=== PATIENT | male | born 1970 | race Caucasian/White ===

== ENCOUNTER 2018-10-10 08:34 | Inpatient (IN) | payer OTHER ==
[2018-10-10 09:15] VITALS: BMI 28.7
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
[2018-10-10] MEDS ORDERED: ACETAMINOPHEN 325 MG TABLET (FP) PO PRN ×2 (09:59)
[2018-10-10] MEDS ORDERED: cloNIDine HCL 0.1 MG TABLET PO PRN (09:59)
[2018-10-10] MEDS ORDERED: MAGNESIUM HYDROX 2400MG/30ML ORAL SUSPENSION 30 ML CUP PO PRN (09:59)
[2018-10-10] MEDS ORDERED: MAG HYDROX/AL HYDROX/SIMETH 30 ML UNIT-DOSE CUP PO PRN (09:59)
[2018-10-10] MEDS ORDERED: MAGNESIUM CITRATE 300 ML BOTTLE PO PRN (09:59)
[2018-10-10] MEDS ORDERED: MELATONIN 5 MG TABLETS PO PRN (09:59)
[2018-10-10] MEDS ORDERED: IBUPROFEN 400 MG TABLET (FP) PO PRN (09:59)
[2018-10-10] MEDS ORDERED: BISMUTH SUBSALICYLATE 524 MG/30 ML UD PO PRN (09:59)
[2018-10-10] MEDS ORDERED: MENTHOL/PHENOL 1 EACH UD MM PRN (09:59)
[2018-10-10] MEDS ORDERED: METHADONE (DETOX) 10 MG, METHADONE (DETOX) 5 MG PO ONE (10:03)
[2018-10-10] MEDS ORDERED: METHADONE HCL 5 MG TABLET (FOR DETOX USE ONLY) ONE (11:06)
[2018-10-10] MEDS ORDERED: METHADONE HCL 10 MG TABLET (FOR DETOX USE ONLY) ONE (11:06)
[2018-10-10] MEDS: PRENATAL VITAMINS W/ FOLIC ACID TABLET (FP) PO SCH (11:07)
[2018-10-10] MEDS: METHOCARBAMOL 500 MG TABLET PO PRN ×2 (11:08→22:45)
[2018-10-10] MEDS ORDERED: hydrOXYzine PAMOATE 25 MG CAPSULE (FP) PO ONE (11:14)
[2018-10-10 12:55] LABS: PH,URINE >= 9.0 (5.0-8.0); URINE APPEARANCE CLEAR; URINE BILIRUBIN NEGATIVE (NEGATIVE); URINE COLOR YELLOW; URINE GLUCOSE (UA) NEGATIVE (NEGATIVE); URINE KETONE NEGATIVE (NEGATIVE); URINE LEUK ESTERASE NEGATIVE (NEGATIVE); URINE NITRITE NEGATIVE (NEGATIVE); URINE PROTEIN NEGATIVE (NEGATIVE); URINE UROBILINOGEN 0.2 mg/dL (0.2-1.0)
[2018-10-10] MEDS ORDERED: QUEtiapine FUMARATE 50 MG TABLET PO ONE (22:00)
[2018-10-10] MEDS: THIAMINE HCL 100 MG TABLET (FP) PO SCH (22:44)
[2018-10-10] MEDS ORDERED: METHADONE HCL 10 MG TABLET (FOR DETOX USE ONLY) PO ONE (23:00)
--- NOTE | 2018-10-11 09:53 | PN ---
BHS COWS - Scale Resting Pulse: 0= [place] 80 or Below Sweatin= Chills/Flushing Restless Observation: 0= Sits Still Pupil Size: 1= Pupils >than Normal Bone or Joint Aches: 1= Mild Discomfort Runny Nose/ Eye Tearin= Nasal Congestion GI Upset > 30mins: 1= Stomach Cramp Tremor Observation of Outstretched Hands: 2= Slight Tremor Visible Yawning Observation: 1= 1-2x During Session Anxiety or Irritability: 2=Irritable/Anxious Goose Flesh Skin: 0=Smooth Skin COWS Score: 10 BHS Progress Note (SOAP) Subjective: tired low energy resting on bed tolerate fluid well Objective: 10/11/18 09:55 Laboratory Last Values Urine Color Yellow 10/10/18 10:02 Urine Appearance Clear 10/10/18 10:02 Urine pH >= 9.0 (5.0-8.0) H 10/10/18 10:02 Ur Specific [place] 1.017 (1.010-1.035) 10/10/18 10:02 Urine Protein Negative (NEGATIVE) 10/10/18 10:02 Urine Glucose (UA) Negative (NEGATIVE) 10/10/18 10:02 Urine Ketones Negative (NEGATIVE) 10/10/18 10:02 Urine Blood Negative (NEGATIVE) 10/10/18 10:02 Urine Nitrite Negative (NEGATIVE) 10/10/18 10:02 Urine Bilirubin Negative (NEGATIVE) 10/10/18 10:02 Urine Urobilinogen 0.2 mg/dL (0.2-1.0) 10/10/18 10:02 Ur Leukocyte Esterase Negative (NEGATIVE) 10/10/18 10:02 10/11/18 09:58 lab pending Assessment: 10/11/18 09:58 opiate withdrawal sx Plan: continue detox
[2018-10-11] MEDS ORDERED: METHADONE (DETOX) 20 MG, METHADONE (DETOX) 5 MG PO ONE (10:00)
[2018-10-11] MEDS ORDERED: METHADONE HCL 10 MG TABLET (FOR DETOX USE ONLY) PO ONE (10:00)
[2018-10-11 10:01] LABS: ALBUMIN 2.8 g/dl (3.4-5.0); BILIRUBIN,TOTAL 0.9 mg/dL (0.2-1); CALCIUM 8.4 mg/dL (8.5-10.1); CREATININE 0.5 mg/dL (0.55-1.3); POTASSIUM 3.8 mmol/L (3.5-5.1); TOT PROT 6.5 g/dl (6.4-8.2)
[2018-10-11 10:11] LABS: HEMATOCRIT 35.7 % (35.4-49); HEMOGLOBIN 11.9 GM/dL (11.7-16.9); MCH 28.6 pg (25.7-33.7); MCHC 33.4 g/dl (32.0-35.9); MEAN CELL VOLUME 85.8 fl (80-96); MEAN PLT VOLUME 7.1 fl (7.5-11.1); PLATELET COUNT 260 K/MM3 (134-434); RBC 4.17 M/mm3 (4.00-5.60); RDW 14.4 % (11.9-15.9); WHITE BLOOD COUNT 9.6 K/mm3 (4.0-10.0)
[2018-10-11] MEDS ORDERED: METHADONE HCL 10 MG TABLET (FOR DETOX USE ONLY) ONE (10:31)
[2018-10-11] MEDS ORDERED: METHADONE HCL 5 MG TABLET (FOR DETOX USE ONLY) ONE (10:31)
[2018-10-11] MEDS: PRENATAL VITAMINS W/ FOLIC ACID TABLET (FP) PO SCH (10:43)
[2018-10-11] MEDS: THIAMINE HCL 100 MG TABLET (FP) PO SCH (22:32)
[2018-10-12 09:17] VITALS: BP 125/87; PULSE 65; TEMP 97.9
[2018-10-12] MEDS ORDERED: METHADONE HCL 10 MG TABLET (FOR DETOX USE ONLY) PO ONE (10:00)
[2018-10-12] MEDS: PRENATAL VITAMINS W/ FOLIC ACID TABLET (FP) PO SCH (10:25)
--- NOTE | 2018-10-12 12:05 | DS ---
[facility] Detox Discharge Summary Admission Date: 10/10/18 Discharge Date: 10/12/18 - History Present History: Opioid Dependence Additional Comments: 48 years old male admitted on 10/10/18 for opiate withdrawal stabilization feeling better today wants to return to his outpatient program and seeks methadone or suboxone program "they want me to come to detox" "I give them dirty urine" "I want to go back bring the discharge paper with me" patient is alert no acute distress denies suicidal ideation Pertinent Past History: bring in medication list and lab report to follow up appointment - Physical Exam Results Vital Signs: Vital Signs Temperature 97.9 F 10/12/18 09:16 Pulse Rate 65 10/12/18 09:16 Respiratory Rate 18 10/12/18 09:16 Blood Pressure 125/87 10/12/18 09:16 O2 Sat by Pulse Oximetry (%) Pertinent Admission Physical Exam Findings: opiate withdrawal sx Laboratory Last Values WBC 9.6 K/mm3 (4.0-10.0) 10/11/18 07:00 RBC 4.17 M/mm3 (4.00-5.60) 10/11/18 07:00 Hgb 11.9 GM/dL (11.7-16.9) 10/11/18 07:00 Hct 35.7 % (35.4-49) 10/11/18 07:00 MCV 85.8 fl (80-96) 10/11/18 07:00 MCH 28.6 pg (25.7-33.7) 10/11/18 07:00 MCHC 33.4 g/dl (32.0-35.9) 10/11/18 07:00 RDW 14.4 % (11.9-15.9) 10/11/18 07:00 Plt Count 260 K/MM3 (134-434) 10/11/18 07:00 MPV 7.1 fl (7.5-11.1) L 10/11/18 07:00 Sodium 141 mmol/L (136-145) 10/11/18 07:00 Potassium 3.8 mmol/L (3.5-5.1) 10/11/18 07:00 Chloride 106 mmol/L (98-107) 10/11/18 07:00 Carbon Dioxide 27 mmol/L (21-32) 10/11/18 07:00 Anion Gap 8 MMOL/L (8-16) 10/11/18 07:00 BUN 7 mg/dL (7-18) 10/11/18 07:00 Creatinine 0.5 mg/dL (0.55-1.3) L 10/11/18 07:00 Est GFR (CKD-EPI)AfAm 150.62 10/11/18 07:00 Est GFR (CKD-EPI)NonAf 129.96 10/11/18 07:00 Random Glucose 85 mg/dL (74-106) 10/11/18 07:00 Calcium 8.4 mg/dL (8.5-10.1) L 10/11/18 07:00 Total Bilirubin 0.9 mg/dL (0.2-1) 10/11/18 07:00 AST 42 U/L (15-37) H 10/11/18 07:00 ALT 110 U/L (13-61) H 10/11/18 07:00 Alkaline Phosphatase 222 U/L (45-117) H 10/11/18 07:00 Total Protein 6.5 g/dl (6.4-8.2) 10/11/18 07:00 Albumin 2.8 g/dl (3.4-5.0) L 10/11/18 07:00 Urine Color Yellow 10/10/18 10:02 Urine Appearance Clear 10/10/18 10:02 Urine pH >= 9.0 (5.0-8.0) H 10/10/18 10:02 Ur Specific [place] 1.017 (1.010-1.035) 10/10/18 10:02 Urine Protein Negative (NEGATIVE) 10/10/18 10:02 Urine Glucose (UA) Negative (NEGATIVE) 10/10/18 10:02 Urine Ketones Negative (NEGATIVE) 10/10/18 10:02 Urine Blood Negative (NEGATIVE) 10/10/18 10:02 Urine Nitrite Negative (NEGATIVE) 10/10/18 10:02 Urine Bilirubin Negative (NEGATIVE) 10/10/18 10:02 Urine Urobilinogen 0.2 mg/dL (0.2-1.0) 10/10/18 10:02 Ur Leukocyte Esterase Negative (NEGATIVE) 10/10/18 10:02 RPR Titer Nonreactive (NONREACTIVE) 10/11/18 07:00 lab noted - Treatment Hospital Course: Detox Protocol Followed, Detoxed Safely, Responded well, Discharged Condition Good, Rehab Referral Accepted Patient has Accepted a Rehab Referral to: return to his out patient rehab facility - Medication Discharge Medications: Ambulatory Orders NK [No Known Home Medication] 10/10/18 - Diagnosis (1) Opioid dependence with withdrawal Current Visit: Yes Status: Acute (2) Essential (primary) hypertension Current Visit: Yes Status: Chronic (3) History of positive PPD Current Visit: Yes Status: Resolved - AMA Did Patient Leave Against Medical Advice: No BHS COWS - Scale Resting Pulse: 0= [place] 80 or Below Sweatin= Chills/Flushing Restless Observation: 0= Sits Still Pupil Size: 0= Normal to Room Light Bone or Joint Aches: 1= Mild Discomfort Runny Nose/ Eye Tearin= Nasal Congestion GI Upset > 30mins: 1= Stomach Cramp Tremor Observation of Outstretched Hands: 1= Tremor [place], Not Seen Yawning Observation: 0= None Anxiety or Irritability: 1=Feels Anxious/Irritable Goose Flesh Skin: 0=Smooth Skin COWS Score: 6
--- NOTE | 2018-10-12 12:13 | EKG ---
Test Reason : Blood Pressure : / mmHG Vent. Rate : 067 BPM Atrial Rate : 067 BPM P-R Int : 150 ms QRS Dur : 090 ms QT Int : 428 ms P-R-T Axes : 044 001 016 degrees QTc Int : 452 ms NORMAL SINUS RHYTHM WITH SINUS ARRHYTHMIA NORMAL ECG NO PREVIOUS ECGS AVAILABLE Confirmed by MD Rigo, Joce ([id number]) on 10/12/2018 12:12:48 PM Referred By: DARIAN MCCULLOUGH Confirmed By:Joce Sierra MD
[2018-10-13] MEDS ORDERED: METHADONE HCL 10 MG TABLET (FOR DETOX USE ONLY) PO ONE (10:00)
[2018-10-14] MEDS ORDERED: METHADONE HCL 5 MG TABLET (FOR DETOX USE ONLY) PO ONE (06:00)
[2018-10-15] MEDS ORDERED: METHADONE HCL 10 MG TABLET (FOR DETOX USE ONLY) PO ONE (06:00)
== END 2018-10-12 12:45 | disposition home or self-care (01) | DRG 773 ==
LOC: YASAS 08:34 → Y3N 10:06
PROVIDERS: ADMIT Surgery; ATTEND Surgery
PROC: HZ2ZZZZ Detoxification Services for Substance Abuse Treatment (ICD-10-PCS; principal; 2018-10-08)
DX: F11.23 Opioid dependence with withdrawal (principal); I10 Essential (primary) hypertension; R76.11 Nonspecific reaction to tuberculin skin test without active tuberculosis; Z91.14 Patient's other noncompliance with medication regimen; Z59.0 Homelessness
CPT/HCPCS: 36415; 71046-TC-FY; 80053; 81003; 85027; 86593; 93005; 93010; J0735

== ENCOUNTER 2019-03-02 12:56 | Inpatient (IN) | payer OTHER ==
[2019-03-02 14:07] VITALS: BMI 28.5
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
[2019-03-02] MEDS ORDERED: MAGNESIUM CITRATE 300 ML BOTTLE PO PRN (14:54)
[2019-03-02] MEDS ORDERED: MAGNESIUM HYDROX 2400MG/30ML ORAL SUSPENSION 30 ML CUP PO PRN (14:54)
[2019-03-02] MEDS ORDERED: METHOCARBAMOL 500 MG TABLET PO PRN (14:54)
[2019-03-02] MEDS ORDERED: cloNIDine HCL 0.1 MG TABLET PO PRN (14:54)
[2019-03-02] MEDS ORDERED: METHADONE HCL 10 MG TABLET (FOR DETOX USE ONLY) PO ONE (14:54)
[2019-03-02] MEDS ORDERED: MAG HYDROX/AL HYDROX/SIMETH 30 ML UNIT-DOSE CUP PO PRN (14:54)
[2019-03-02] MEDS ORDERED: MENTHOL/PHENOL 1 EACH UD MM PRN (14:54)
[2019-03-02] MEDS ORDERED: IBUPROFEN 400 MG TABLET (FP) PO PRN (14:54)
[2019-03-02] MEDS ORDERED: NALOXONE HCL 0.4 MG/ML VIAL IM PRN (14:54)
[2019-03-02] MEDS ORDERED: ACETAMINOPHEN 325 MG TABLET (FP) PO PRN ×2 (14:54)
[2019-03-02] MEDS ORDERED: BISMUTH SUBSALICYLATE 524 MG/30 ML UD PO PRN (14:54)
[2019-03-02] MEDS ORDERED: hydrOXYzine PAMOATE 25 MG CAPSULE (FP) PO PRN (14:54)
[2019-03-02] MEDS ORDERED: MAGNESIUM CITRATE 300 ML BOTTLE PO ONE (14:56)
[2019-03-02] MEDS ORDERED: P-EPHED 60MG/TRIPROLIDI 2.5MG TABLET PO PRN (18:47)
[2019-03-02] MEDS: ATORVASTATIN CA 10 MG TABLET (FP) PO SCH (22:09)
[2019-03-02] MEDS: MELATONIN 5 MG TABLETS PO PRN (22:09)
[2019-03-02] MEDS: DOCUSATE SODIUM 100 MG CAPSULE (FP) PO SCH (22:09)
[2019-03-02] MEDS: THIAMINE HCL 100 MG TABLET (FP) PO SCH (22:09)
[2019-03-03] MEDS ORDERED: METHADONE HCL 10 MG TABLET (FOR DETOX USE ONLY) ONE (08:59)
[2019-03-03] MEDS ORDERED: METHADONE HCL 5 MG TABLET (FOR DETOX USE ONLY) ONE (09:00)
[2019-03-03] MEDS ORDERED: METHADONE (DETOX) 20 MG, METHADONE (DETOX) 5 MG PO ONE (10:00)
[2019-03-03] MEDS ORDERED: THIAMINE HCL PO SCH (10:00)
[2019-03-03] MEDS: HYDROCHLOROTHIAZIDE 25 MG TABLET (FP) PO SCH (10:03)
[2019-03-03] MEDS: amLODIPine BESYLATE 5 MG TABLET (FP) PO SCH (10:03)
[2019-03-03] MEDS: PRENATAL VITAMINS W/ FOLIC ACID TABLET (FP) PO SCH (10:03)
[2019-03-03] MEDS: DOCUSATE SODIUM 100 MG CAPSULE (FP) PO SCH ×2 (10:03→22:18)
[2019-03-03 10:21] LABS: HEMATOCRIT 35.9 % (35.4-49); HEMOGLOBIN 12.4 GM/dL (11.7-16.9); MCH 29.4 pg (25.7-33.7); MCHC 34.4 g/dl (32.0-35.9); MEAN CELL VOLUME 85.3 fl (80-96); MEAN PLT VOLUME 7.7 fl (7.5-11.1); PLATELET COUNT 228 K/MM3 (134-434); RBC 4.21 M/mm3 (4.00-5.60); RDW 13.2 % (11.9-15.9)
[2019-03-03 10:32] LABS: BILIRUBIN,TOTAL 0.4 mg/dL (0.2-1); BLOOD UREA NITROGEN 12.5 mg/dL (7-18); CALCIUM 8.5 mg/dL (8.5-10.1); CREATININE 0.7 mg/dL (0.55-1.3); POTASSIUM 3.7 mmol/L (3.5-5.1); TOT PROT 7.3 g/dl (6.4-8.2)
[2019-03-03] MEDS ORDERED: FLU VACCINE QUAD 60 MCG/0.5 ML (MDV 19-20) IM ONE (12:00)
[2019-03-03] MEDS ORDERED: PNEUMOCOCCAL 23 VACCINE 0.5 ML VIAL IM ONE (12:00)
[2019-03-03] MEDS ORDERED: PNEUMOC 13-VAL CONJ-DIP CRM/PF 0.5 ML DISP.SYRIN IM ONE (12:00)
[2019-03-03] MEDS: clonazePAM 0.5 MG TABLET PO PRN (12:54)
--- NOTE | 2019-03-03 17:10 | PN ---
BHS COWS - Scale Resting Pulse: 0= [place] 80 or Below Sweatin= Chills/Flushing Restless Observation: 1= Difficult to Sit Still Pupil Size: 0= Normal to Room Light Bone or Joint Aches: 0= None Runny Nose/ Eye Tearin= Nasal Congestion GI Upset > 30mins: 1= Stomach Cramp Tremor Observation of Outstretched Hands: 0= None Yawning Observation: 1= 1-2x During Session Anxiety or Irritability: 2=Irritable/Anxious Goose Flesh Skin: 3=Piloerection COWS Score: 10 BHS Progress Note (SOAP) Subjective: Anxious, Sweating, Stomach Cramping, Nasal Congestion. Objective: PATIENT A & O X 3. IN NO ACUTE DISTRESS. 03/03/19 17:09 Vital Signs Temperature 98.7 F 03/03/19 14:16 Pulse Rate 51 L 03/03/19 14:16 Respiratory Rate 18 03/03/19 14:16 Blood Pressure 120/83 03/03/19 14:16 O2 Sat by Pulse Oximetry (%) Laboratory Tests 03/03/19 03/03/19 03/03/19 06:15 06:15 06:15 WBC 7.0 RBC 4.21 Hgb 12.4 Hct 35.9 MCV 85.3 MCH 29.4 MCHC 34.4 RDW 13.2 Plt Count 228 MPV 7.7 Sodium 140 Potassium 3.7 Chloride 105 Carbon Dioxide 27 Anion Gap 7 L BUN 12.5 Creatinine 0.7 Est GFR (CKD-EPI)AfAm 130.25 Est GFR (CKD-EPI)NonAf 112.38 Random Glucose 115 H Calcium 8.5 Total Bilirubin 0.4 AST 16 ALT 18 Alkaline Phosphatase 109 Total Protein 7.3 Albumin 4.0 RPR Titer HIV 1&2 Antibody Screen Negative HIV P24 Antigen Negative 03/03/19 06:15 WBC RBC Hgb Hct MCV MCH MCHC RDW Plt Count MPV Sodium Potassium Chloride Carbon Dioxide Anion Gap BUN Creatinine Est GFR (CKD-EPI)AfAm Est GFR (CKD-EPI)NonAf Random Glucose Calcium Total Bilirubin AST ALT Alkaline Phosphatase Total Protein Albumin RPR Titer Nonreactive HIV 1&2 Antibody Screen HIV P24 Antigen LABS NOTED. Assessment: 03/03/19 17:09 WITHDRAWAL SYMPTOMS. Plan: CONTINUE DETOX.
[2019-03-03] MEDS: ATORVASTATIN CA 10 MG TABLET (FP) PO SCH (22:18)
[2019-03-03] MEDS: MELATONIN 5 MG TABLETS PO PRN (22:18)
[2019-03-03] MEDS: THIAMINE HCL 100 MG TABLET (FP) PO SCH (22:18)
[2019-03-04] MEDS: clonazePAM 0.5 MG TABLET PO PRN ×2 (09:44→17:42)
[2019-03-04] MEDS: PRENATAL VITAMINS W/ FOLIC ACID TABLET (FP) PO SCH (09:44)
[2019-03-04] MEDS: amLODIPine BESYLATE 5 MG TABLET (FP) PO SCH (09:44)
[2019-03-04] MEDS: DOCUSATE SODIUM 100 MG CAPSULE (FP) PO SCH ×2 (09:45→22:25)
[2019-03-04] MEDS: HYDROCHLOROTHIAZIDE 25 MG TABLET (FP) PO SCH (09:45)
[2019-03-04] MEDS ORDERED: TRIMETHOBENZAMIDE HCL 300 MG CAPSULE PO PRN (09:50)
[2019-03-04] MEDS ORDERED: METHADONE HCL 10 MG TABLET (FOR DETOX USE ONLY) PO ONE (10:00)
[2019-03-04] MEDS: RANITIDINE HCL 150 MG TABLET (FP) PO SCH (14:51)
--- NOTE | 2019-03-04 17:09 | PN ---
BHS COWS - Scale Resting Pulse: 0= [place] 80 or Below Sweatin= No chills or Flushing Restless Observation: 0= Sits Still Pupil Size: 0= Normal to Room Light Bone or Joint Aches: 1= Mild Discomfort Runny Nose/ Eye Tearin= None GI Upset > 30mins: 2= Nausea/Diarrhea Tremor Observation of Outstretched Hands: 0= None Yawning Observation: 1= 1-2x During Session Anxiety or Irritability: 2=Irritable/Anxious Goose Flesh Skin: 3=Piloerection COWS Score: 9 BHS Progress Note (SOAP) Subjective: Heartburn Anxious, Fatigue, Nausea. Objective: PATIENT A & O X 3. IN NO ACUTE DISTRESS. 03/04/19 17:08 Vital Signs Temperature 98.5 F 03/04/19 13:37 Pulse Rate 56 L 03/04/19 13:37 Respiratory Rate 16 03/04/19 13:37 Blood Pressure 114/80 03/04/19 13:37 O2 Sat by Pulse Oximetry (%) Laboratory Tests 03/03/19 03/03/19 03/03/19 06:15 06:15 06:15 WBC 7.0 RBC 4.21 Hgb 12.4 Hct 35.9 MCV 85.3 MCH 29.4 MCHC 34.4 RDW 13.2 Plt Count 228 MPV 7.7 Sodium 140 Potassium 3.7 Chloride 105 Carbon Dioxide 27 Anion Gap 7 L BUN 12.5 Creatinine 0.7 Est GFR (CKD-EPI)AfAm 130.25 Est GFR (CKD-EPI)NonAf 112.38 Random Glucose 115 H Calcium 8.5 Total Bilirubin 0.4 AST 16 ALT 18 Alkaline Phosphatase 109 Total Protein 7.3 Albumin 4.0 RPR Titer HIV 1&2 Antibody Screen Negative HIV P24 Antigen Negative 03/03/19 06:15 WBC RBC Hgb Hct MCV MCH MCHC RDW Plt Count MPV Sodium Potassium Chloride Carbon Dioxide Anion Gap BUN Creatinine Est GFR (CKD-EPI)AfAm Est GFR (CKD-EPI)NonAf Random Glucose Calcium Total Bilirubin AST ALT Alkaline Phosphatase Total Protein Albumin RPR Titer Nonreactive HIV 1&2 Antibody Screen HIV P24 Antigen LABS NOTED. Assessment: 03/04/19 17:08 WITHDRAWAL SYMPTOMS. Plan: CONTINUE DETOX. INCREASE DAILY PO WATER INTAKE. PRN TIGAN PO FOR NAUSEA.
[2019-03-04] MEDS: THIAMINE HCL 100 MG TABLET (FP) PO SCH (22:25)
[2019-03-04] MEDS: ATORVASTATIN CA 10 MG TABLET (FP) PO SCH (22:25)
[2019-03-04] MEDS: MELATONIN 5 MG TABLETS PO PRN (22:26)
[2019-03-05] MEDS ORDERED: METHADONE HCL 10 MG TABLET (FOR DETOX USE ONLY) ONE (09:03)
[2019-03-05] MEDS ORDERED: METHADONE HCL 5 MG TABLET (FOR DETOX USE ONLY) ONE (09:04)
[2019-03-05] MEDS ORDERED: METHADONE (DETOX) 10 MG, METHADONE (DETOX) 5 MG PO ONE (10:00)
[2019-03-05] MEDS: DOCUSATE SODIUM 100 MG CAPSULE (FP) PO SCH (10:10)
[2019-03-05] MEDS: RANITIDINE HCL 150 MG TABLET (FP) PO SCH (10:10)
[2019-03-05] MEDS: PRENATAL VITAMINS W/ FOLIC ACID TABLET (FP) PO SCH (10:10)
[2019-03-05] MEDS: amLODIPine BESYLATE 5 MG TABLET (FP) PO SCH (10:10)
[2019-03-05] MEDS: HYDROCHLOROTHIAZIDE 25 MG TABLET (FP) PO SCH (10:10)
--- NOTE | 2019-03-05 11:57 | PN ---
BHS COWS - Scale Resting Pulse: 0= [place] 80 or Below Sweatin= Chills/Flushing Restless Observation: 1= Difficult to Sit Still Pupil Size: 0= Normal to Room Light Bone or Joint Aches: 2= Severe Diffuse Aches Runny Nose/ Eye Tearin= None GI Upset > 30mins: 0= None Tremor Observation of Outstretched Hands: 0= None Yawning Observation: 1= 1-2x During Session Anxiety or Irritability: 2=Irritable/Anxious Goose Flesh Skin: 0=Smooth Skin COWS Score: 7 BHS Progress Note (SOAP) Subjective: c/o anxiety, irritability, muscle aches, and sweats. Objective: 03/05/19 11:56 Vital Signs 03/05/19 03/05/19 06:45 09:24 Temperature 98.3 F 98.4 F Pulse Rate 59 L 74 Respiratory 18 18 Rate Blood Pressure 120/74 124/75 Lab Results WBC 7.0 K/mm3 (4.0-10.0) 03/03/19 06:15 RBC 4.21 M/mm3 (4.00-5.60) 03/03/19 06:15 Hgb 12.4 GM/dL (11.7-16.9) 03/03/19 06:15 Hct 35.9 % (35.4-49) 03/03/19 06:15 MCV 85.3 fl (80-96) 03/03/19 06:15 MCHC 34.4 g/dl (32.0-35.9) 03/03/19 06:15 RDW 13.2 % (11.9-15.9) 03/03/19 06:15 Plt Count 228 K/MM3 (134-434) 03/03/19 06:15 Sodium 140 mmol/L (136-145) 03/03/19 06:15 Potassium 3.7 mmol/L (3.5-5.1) 03/03/19 06:15 Chloride 105 mmol/L (98-107) 03/03/19 06:15 Carbon Dioxide 27 mmol/L (21-32) 03/03/19 06:15 Anion Gap 7 MMOL/L (8-16) L 03/03/19 06:15 BUN 12.5 mg/dL (7-18) 03/03/19 06:15 Creatinine 0.7 mg/dL (0.55-1.3) 03/03/19 06:15 Random Glucose 115 mg/dL (74-106) H 03/03/19 06:15 Calcium 8.5 mg/dL (8.5-10.1) 03/03/19 06:15 Labs noted. Assessment: 03/05/19 11:56 AOX3, in no acute respiratory distress. Full ROM, ambulating in the unit. Withdrawal symptoms. Plan: continue detox.
--- NOTE | 2019-03-05 17:13 | DS ---
[facility] Detox Discharge Summary Admission Date: 03/02/19 Discharge Date: 03/05/19 - History Pertinent Past History: HTN, Hypercholesterolemia - Physical Exam Results Vital Signs: Vital Signs Temperature 98.8 F 03/05/19 13:25 Pulse Rate 72 03/05/19 13:25 Respiratory Rate 16 03/05/19 13:25 Blood Pressure 127/82 03/05/19 13:25 O2 Sat by Pulse Oximetry (%) Pertinent Admission Physical Exam Findings: Withdrawal sx Laboratory Last Values WBC 7.0 K/mm3 (4.0-10.0) 03/03/19 06:15 RBC 4.21 M/mm3 (4.00-5.60) 03/03/19 06:15 Hgb 12.4 GM/dL (11.7-16.9) 03/03/19 06:15 Hct 35.9 % (35.4-49) 03/03/19 06:15 MCV 85.3 fl (80-96) 03/03/19 06:15 MCH 29.4 pg (25.7-33.7) 03/03/19 06:15 MCHC 34.4 g/dl (32.0-35.9) 03/03/19 06:15 RDW 13.2 % (11.9-15.9) 03/03/19 06:15 Plt Count 228 K/MM3 (134-434) 03/03/19 06:15 MPV 7.7 fl (7.5-11.1) 03/03/19 06:15 Sodium 140 mmol/L (136-145) 03/03/19 06:15 Potassium 3.7 mmol/L (3.5-5.1) 03/03/19 06:15 Chloride 105 mmol/L (98-107) 03/03/19 06:15 Carbon Dioxide 27 mmol/L (21-32) 03/03/19 06:15 Anion Gap 7 MMOL/L (8-16) L 03/03/19 06:15 BUN 12.5 mg/dL (7-18) 03/03/19 06:15 Creatinine 0.7 mg/dL (0.55-1.3) 03/03/19 06:15 Est GFR (CKD-EPI)AfAm 130.25 03/03/19 06:15 Est GFR (CKD-EPI)NonAf 112.38 03/03/19 06:15 Random Glucose 115 mg/dL (74-106) H 03/03/19 06:15 Calcium 8.5 mg/dL (8.5-10.1) 03/03/19 06:15 Total Bilirubin 0.4 mg/dL (0.2-1) 03/03/19 06:15 AST 16 U/L (15-37) 03/03/19 06:15 ALT 18 U/L (13-61) 03/03/19 06:15 Alkaline Phosphatase 109 U/L (45-117) 03/03/19 06:15 Total Protein 7.3 g/dl (6.4-8.2) 03/03/19 06:15 Albumin 4.0 g/dl (3.4-5.0) 03/03/19 06:15 RPR Titer Nonreactive (NONREACTIVE) 03/03/19 06:15 HIV 1&2 Antibody Screen Negative 03/03/19 06:15 HIV P24 Antigen Negative 03/03/19 06:15 - Medication Discharge Medications: Ambulatory Orders Amlodipine Besylate 5 mg PO DAILY 03/02/19 Docusate Sodium [Colace] 100 mg PO BID 03/02/19 Hydrochlorothiazide 25 mg PO DAILY 03/02/19 Simvastatin 10 mg PO HS 03/02/19 Thiamine HCl [Vitamin B-1] 1 tab PO DAILY 03/02/19 Vit B1 Mn/B2/B3/B5/B6/B12/C/FA [B Complex with Vitamin C Tab] 1 tab PO DAILY 02/10 - Diagnosis (1) Hyperchloremia Current Visit: Yes Status: Acute (2) Opioid dependence with withdrawal Current Visit: No Status: Acute (3) Essential (primary) hypertension Current Visit: No Status: Chronic - AMA Did Patient Leave Against Medical Advice: Yes
[2019-03-05 17:48] VITALS: BP 130/87; PULSE 77; TEMP 99.3
[2019-03-06] MEDS ORDERED: METHADONE HCL 10 MG TABLET (FOR DETOX USE ONLY) PO ONE (10:00)
[2019-03-07] MEDS ORDERED: METHADONE HCL 5 MG TABLET (FOR DETOX USE ONLY) PO ONE (06:00)
== END 2019-03-05 17:31 | disposition left against medical advice (07) | DRG 770 ==
LOC: YASAS 12:56 → Y3N 15:26
PROVIDERS: ADMIT Allergy & Immunology; ATTEND Allergy & Immunology
PROC: HZ2ZZZZ Detoxification Services for Substance Abuse Treatment (ICD-10-PCS; principal; 2019-03-02)
DX: F11.23 Opioid dependence with withdrawal (principal); F17.210 Nicotine dependence, cigarettes, uncomplicated; I10 Essential (primary) hypertension; E78.00 Pure hypercholesterolemia, unspecified; R76.11 Nonspecific reaction to tuberculin skin test without active tuberculosis; Z90.49 Acquired absence of other specified parts of digestive tract; Z91.013 Allergy to seafood
CPT/HCPCS: 36415; 80053; 85027; 86593; 87389; 90732; G0009; Q2036